=== PATIENT | male | born 1985 | race African-American/Black ===

== ENCOUNTER 2016-12-25 10:29 | Emergency (ER) | payer MEDICARE, MEDICAID ==
--- NOTE | 2016-12-25 10:48 | ER Document Report ---
ED Medical Screen (RME) - General Stated Complaint: RECTAL BLEEDING Time seen by provider: 10:46 Mode of Arrival: Ambulatory Information source: Patient Notes: 31-year-old male presents to ED for rectal bleeding for 2 days states a small amount. He also states he has a white lump on the outside of his rectum that is not sure what it is. States this lump only comes out when he is having a bowel movement. States the pain is getting worse. States the lump has been there for 5 days. I have greeted and performed a rapid initial assessment of this patient. A comprehensive ED assessment and evaluation of the patient, analysis of test results and completion of medical decision making process will be conducted by an additional ED providers. TRAVEL OUTSIDE OF THE [place] IN LAST 30 DAYS: No - Related Data Allergies/Adverse Reactions: No Known Allergies Allergy (Verified 01/31/16 12:30) Past Medical History - Immunizations Immunizations up to date: Yes Hx Diphtheria, Pertussis, Tetanus Vaccination: Yes
--- NOTE | 2016-12-25 11:56 | ER Document Report ---
ED GI Bleed / Rectal Pain - General Chief Complaint: Rectal Pain Stated Complaint: RECTAL BLEEDING Mode of Arrival: Ambulatory Information source: Patient TRAVEL OUTSIDE OF THE [place] IN LAST 30 DAYS: No - HPI Patient complains to provider of: Rectal pain Onset: Last week Timing/Duration: Constant Quality of pain: Burning, Throbbing Severity of symptoms: Moderate Rectal bleeding: Blood mixed w/ stool Rectal foreign body: No Use of: denies: Warfarin, Plavix, ASA, Lovenox, Pradaxa, NSAIDS, ETOH Associated symptoms: None Exacerbated by: Other - BM, VALSALVA Relieved by: Remaining still Similar symptoms previously: No Recently seen / treated by doctor: No - Related Data Allergies/Adverse Reactions: No Known Allergies Allergy (Verified 12/25/16 10:48) Past Medical History - General Information source: Patient - Social History Smoking Status: Unknown if Ever Smoked Chew tobacco use (# tins/day): No Frequency of alcohol use: None Drug Abuse: None Family History: Reviewed & Not Pertinent, DM, Malignancy Patient has suicidal ideation: No Patient has homicidal ideation: No - Past Medical History Cardiac Medical History: Reports: None Pulmonary Medical History: Reports: None EENT Medical History: Reports: None Neurological Medical History: Reports: None Endocrine Medical History: Reports: None Renal/ Medical History: Denies: Hx Peritoneal Dialysis Malignancy Medical History: Reports None GI Medical History: Reports: None Musculoskeltal Medical History: Reports None Psychiatric Medical History: Reports: None Surgical Hx: Negative - Immunizations Immunizations up to date: Yes Hx Diphtheria, Pertussis, Tetanus Vaccination: Yes Review of Systems - Review of Systems Constitutional: No symptoms reported EENT: No symptoms reported Cardiovascular: No symptoms reported Respiratory: No symptoms reported Gastrointestinal: See HPI Genitourinary: No symptoms reported Musculoskeletal: No symptoms reported Skin: No symptoms reported Neurological/Psychological: No symptoms reported Physical Exam - Vital signs Vitals: Temp Pulse Resp BP Pulse Ox 98.1 F 88 18 123/85 100 12/25/16 10:47 12/25/16 10:47 12/25/16 10:47 12/25/16 10:47 12/25/16 10:47 Interpretation: Normal. No: Tachycardic, Tachypneic, Febrile - General General appearance: Appears well, Alert In distress: None - HEENT Head: Normocephalic Eyes: Normal Conjunctiva: Normal Ears: Normal Nasal: Normal Mouth/Lips: Normal Mucous membranes: Normal Pharynx: Normal Neck: Normal - Respiratory Respiratory status: No respiratory distress - Cardiovascular Rhythm: Regular - Abdominal Inspection: Normal Distension: No distension Bowel sounds: Normal - Rectal Tenderness: Yes - 5 O'CLOCK AND 10 O'CLOCK Hemorrhoids: Internal, External Notes: FAMILY MEMBER BRIINGS PHOTO OF APPARENT PROLAPSED INTERNAL HEMORRHOID. - Extremities General upper extremity: Normal inspection General lower extremity: Normal inspection. No: Rick's sign - Neurological Neuro grossly intact: Yes Cognition: Normal Orientation: AAOx4 - Psychological Associated symptoms: Normal affect, Normal mood - Skin Skin Temperature: Warm Skin Moisture: Dry Skin Color: Normal Skin Turgor: Elastic Course - Vital Signs Vital signs: Temp Pulse Resp BP Pulse Ox 98.1 F 88 18 123/85 100 12/25/16 10:47 12/25/16 10:47 12/25/16 10:47 12/25/16 10:47 12/25/16 10:47 Discharge - Discharge Clinical Impression: Hemorrhoid prolapse Condition: Stable Disposition: HOME, SELF-CARE Instructions: Hemorrhoids ([facility]), HC Hemorrhoid Cream ([facility]), Oral Narcotic Medication ([facility]) Additional Instructions: MEDS DIRECTED. TAKE MIRALAX OR OTHER STOOL SOFTENER TO KEEP BOWEL MOVEMENTS SOFT AND EASY TO PASS. FOLLOW UP WITH [facility] IF PROBLEM DOES NOT RESOLVE IN 5-7 DAYS. Prescriptions: Hydrocodone/Acetaminophen [[place] 5-325 mg Tablet] 1 tab PO Q4HP PRN #14 tablet PRN Reason: For Pain Hydrocortisone Acetate [Anusol Hc 25 mg Supp.rect] 1 supp.rect [place] BID #14 supp.rect Referrals: FIDELIA OSUNA MD [Primary Care Provider] - Follow up as needed KEVEN HUFF MD [ACTIVE STAFF] - Follow up as needed
[2016-12-25] MEDS ORDERED: OXYCODONE-ACETAMINOPHEN 5-325 MG TABLET PO ONE (12:06)
[2016-12-25 12:43] VITALS: BP 122/80
== END 2016-12-25 12:43 | disposition home or self-care (01) ==
LOC: ER 10:29
DX: K64.8 Other hemorrhoids (principal); K62.89 Other specified diseases of anus and rectum
CPT/HCPCS: 99283; A9270

== ENCOUNTER 2017-01-20 17:09 | Emergency (ER) | payer MEDICARE, MEDICAID ==
--- NOTE | 2017-01-20 18:41 | ER Document Report ---
ED Medical Screen (RME) - General Stated Complaint: COUGH Notes: 31 yo male c/o cough and sore throat x 1 month. + fever, subjective. TRAVEL OUTSIDE OF THE [place] IN LAST 30 DAYS: No - Related Data Allergies/Adverse Reactions: No Known Allergies Allergy (Verified 12/25/16 10:48) Past Medical History Renal/ Medical History: Denies: Hx Peritoneal Dialysis - Immunizations Immunizations up to date: Yes Hx Diphtheria, Pertussis, Tetanus Vaccination: Yes Physical Exam - Vital signs Vitals: Temp Pulse Resp BP Pulse Ox 98.5 F 85 16 135/83 H 98 01/20/17 17:33 01/20/17 17:33 01/20/17 17:33 01/20/17 17:33 01/20/17 17:33 Course - Vital Signs Vital signs: Temp Pulse Resp BP Pulse Ox 98.5 F 85 16 135/83 H 98 01/20/17 17:33 01/20/17 17:33 01/20/17 17:33 01/20/17 17:33 01/20/17 17:33
--- NOTE | 2017-01-20 21:43 | ER Document Report ---
ED General - General Chief Complaint: Sore Throat Stated Complaint: COUGH Notes: Patient is a 31-year-old male without past medical history who presents with one month of cough and sore throat. Nothing improves or worsens the symptoms. He states he has been trying cough drops. He has not seen his primary care doctor regarding today's concerns. He describes the pain in his throat as an itching, irritating pain. It is seen unchanged since onset. He denies any fever, headache, neck pain or altered mental status. No shortness of breath. No diarrhea or vomiting. TRAVEL OUTSIDE OF THE [place] IN LAST 30 DAYS: No - Related Data Allergies/Adverse Reactions: tramadol Allergy (Verified 01/20/17 20:33) Past Medical History - General Information source: Patient - Social History Smoking Status: Never Smoker Chew tobacco use (# tins/day): No Frequency of alcohol use: None Drug Abuse: None Lives with: Spouse/Significant other Family History: Reviewed & Not Pertinent, DM, Malignancy Patient has suicidal ideation: No Patient has homicidal ideation: No Renal/ Medical History: Denies: Hx Peritoneal Dialysis - Immunizations Immunizations up to date: Yes Hx Diphtheria, Pertussis, Tetanus Vaccination: Yes Review of Systems - Review of Systems Notes: Constitutional: Negative for fever. HENT: Positive for sore throat. Eyes: Negative for visual changes. Cardiovascular: Negative for chest pain. Respiratory: Negative for shortness of breath. Positive for cough Gastrointestinal: Negative for abdominal pain, vomiting or diarrhea. Genitourinary: Negative for dysuria. Musculoskeletal: Negative for back pain. Skin: Negative for rash. Neurological: Negative for headaches, weakness or numbness. 10 point ROS negative except as marked above and in HPI. Physical Exam - Vital signs Vitals: Temp Pulse Resp BP Pulse Ox 98.5 F 85 16 135/83 H 98 01/20/17 17:33 01/20/17 17:33 01/20/17 17:33 01/20/17 17:33 01/20/17 17:33 Interpretation: Normal Notes: PHYSICAL EXAMINATION: GENERAL: Well-appearing, well-nourished and in no acute distress. HEAD: Atraumatic, normocephalic. EYES: Pupils equal round and reactive to light, extraocular movements intact, sclera anicteric, conjunctiva are normal. ENT: nares patent, oropharynx clear without exudates. Moist mucous membranes. NECK: Normal range of motion, supple without lymphadenopathy LUNGS: Breath sounds clear to auscultation bilaterally and equal. No wheezes rales or rhonchi. HEART: Regular rate and rhythm without murmurs ABDOMEN: Soft, nontender, normoactive bowel sounds. No guarding, no rebound. No masses appreciated. EXTREMITIES: Normal range of motion, no pitting or edema. No cyanosis. NEUROLOGICAL: No focal neurological deficits. Moves all extremities spontaneously and on command. PSYCH: Normal mood, normal affect. SKIN: Warm, Dry, normal turgor, no rashes or lesions noted. Course - Re-evaluation Re-evalutation: 01/20/17 21:42 Presentation is most consistent with a viral upper respiratory infection. Patient is overall well appearance, vitals within normal limits, well-hydrated. Patient denies any headache, neck pain, and has no evidence of meningismus on examination. Lungs are clear bilaterally. No evidence of respiratory distress. Based on clinical exam and history, I do not suspect an acute pneumonia, meningitis, strep pharyngitis, or an acute encephalitis. Chest x- ray obtained in triage is unremarkable. At this time will discharge with return precautions and follow-up recommendations. Verbal discharge instructions given a the bedside and opportunity for questions given. Medication warnings reviewed. Patient is in agreement with this plan and has verbalized understanding of return precautions and the need for primary care follow-up in the next 24-72 hours. - Vital Signs Vital signs: Temp Pulse Resp BP Pulse Ox 97.6 F 77 18 118/88 H 95 01/20/17 22:13 01/20/17 22:13 01/20/17 22:13 01/20/17 22:13 01/20/17 22:13 - Diagnostic Test Radiology reviewed: Image reviewed, Reports reviewed Radiology results interpreted by me: 01/21/17 02:58 Chest x-ray: No acute infiltrate Discharge - Discharge Clinical Impression: Bronchitis Condition: Good Disposition: HOME, SELF-CARE Additional Instructions: You were seen for symptoms most consistent with bronchitis. This can take up to 12 weeks to fully resolve. This is generally due to a viral infection. Please follow-up with your primary doctor in the next 2-3 days. Return if you develop worsening cough, vomiting, fever >100.4, pass out, begin coughing blood, or have any other symptoms that are concerning to you. Please use the medications prescribed today as directed. Prescriptions: Benzonatate [Tessalon Perle 100 mg Capsule] 100 mg PO Q8HP PRN #40 cap PRN Reason: Referrals: FIDELIA OSUNA MD [Primary Care Provider] - Follow up as needed
[2017-01-20] MEDS ORDERED: DIPHENHYDRAMINE HCL 25 MG CAPSULE PO ONE (22:04)
[2017-01-20 22:14] VITALS: BP 118/88
== END 2017-01-20 22:13 | disposition home or self-care (01) ==
LOC: ER 17:09
DX: J40 Bronchitis, not specified as acute or chronic (principal); J02.9 Acute pharyngitis, unspecified; R05 Cough
CPT/HCPCS: 99283; 87070; 87880; 71020; A9270

== ENCOUNTER 2018-06-05 19:12 | Emergency (ER) | payer MEDICARE, MEDICAID ==
[2018-06-05 19:29] VITALS: BP 137/91
[2018-06-05] MEDS ORDERED: IBUPROFEN 600 MG TABLET PO ONE (20:09)
[2018-06-05] MEDS ORDERED: SULFAMETHOXAZOLE/TRIMETHOPRIM 800-160 MG TABLET PO ONE (20:10)
--- NOTE | 2018-06-05 20:11 | ER Document Report ---
ED General - General Chief Complaint: Abscess Stated Complaint: LUMP ON HEAD Time Seen by Provider: 06/05/18 19:46 Notes: Patient is a 32-year-old male without chronic medical problems who presents with 1 week of progressively worsening swelling and pain to his right forehead. He notes that it is a dull throbbing, constant pain. Worsened by touching the area. Nothing improves the pain. He states that he has tried to pop it on his own unsuccessfully. He has not seen his general doctor regarding today's concerns. He denies a history of similar symptoms in the past. No fever or constitutional symptoms. TRAVEL OUTSIDE OF THE [place] IN LAST 30 DAYS: No - Related Data Allergies/Adverse Reactions: tramadol Allergy (Verified 06/05/18 19:57) Past Medical History - General Information source: Patient - Social History Smoking Status: Never Smoker Chew tobacco use (# tins/day): No Frequency of alcohol use: None Drug Abuse: None Lives with: Spouse/Significant other Family History: Reviewed & Not Pertinent, DM, Malignancy Patient has suicidal ideation: No Patient has homicidal ideation: No Renal/ Medical History: Denies: Hx Peritoneal Dialysis Past Surgical History: Reports: Hx Abdominal Surgery - hernia repair as a child - Immunizations Immunizations up to date: Yes Hx Diphtheria, Pertussis, Tetanus Vaccination: Yes Review of Systems - Review of Systems Notes: Constitutional: Negative for fever. HENT: Negative for sore throat. Eyes: Negative for visual changes. Cardiovascular: Negative for chest pain. Respiratory: Negative for shortness of breath. Gastrointestinal: Negative for abdominal pain, vomiting or diarrhea. Genitourinary: Negative for dysuria. Musculoskeletal: Negative for back pain. Skin: Positive for abscess of the right forehead Neurological: Negative for headaches, weakness or numbness. 10 point ROS negative except as marked above and in HPI. Physical Exam - Vital signs Vitals: Temp Pulse Resp BP Pulse Ox 98.7 F 82 18 137/91 H 99 06/05/18 19:28 06/05/18 19:28 06/05/18 19:28 06/05/18 19:28 06/05/18 19:28 Interpretation: Normal Notes: PHYSICAL EXAMINATION: GENERAL: Appears moderately uncomfortable but no acute distress HEAD: Atraumatic, normocephalic. EYES: Pupils equal round and reactive to light, extraocular movements intact, sclera anicteric, conjunctiva are normal. ENT: nares patent, oropharynx clear without exudates. Moist mucous membranes. NECK: Normal range of motion, supple without lymphadenopathy LUNGS: Breath sounds clear to auscultation bilaterally and equal. No wheezes rales or rhonchi. HEART: Regular rate and rhythm without murmurs ABDOMEN: Soft, nontender, normoactive bowel sounds. No guarding, no rebound. No masses appreciated. EXTREMITIES: Normal range of motion, no pitting or edema. No cyanosis. NEUROLOGICAL: No focal neurological deficits. Moves all extremities spontaneously and on command. PSYCH: Normal mood, normal affect. SKIN: Warm, Dry, normal turgor, 0.25 x 0.25 cm abscess to the right forehead Course - Re-evaluation Re-evalutation: 06/06/18 03:58 Patient presents with an abscess to the right forehead. No surrounding erythema or induration. The site was anesthetized with lidocaine and a small incision was made. 3 cc of purulent drainage was obtained, the area was probed for loculations and then subsequently irrigated. Patient tolerated procedure well. He will be started on trimethoprim sulfamethoxazole. At this time will discharge with return precautions and follow-up recommendations. Verbal discharge instructions given a the bedside and opportunity for questions given. Medication warnings reviewed. Patient is in agreement with this plan and has verbalized understanding of return precautions and the need for primary care follow-up in the next 24-72 hours. - Vital Signs Vital signs: Temp Pulse Resp BP Pulse Ox 98.7 F 82 18 137/91 H 99 06/05/18 19:28 06/05/18 19:28 06/05/18 19:28 06/05/18 19:28 06/05/18 19:28 Procedures - Incision and Drainage Head Type: Simple Anesthetic type: 1% Lidocaine mL's of anesthetic: 3 Blade size: 11 I&D procedure: Betadine prep applied Incision Method: Incision made by scalpel Amount/type of drainage: 3 cc of purulent drainage Discharge - Discharge Clinical Impression: Abscess of forehead Condition: Good Disposition: HOME, SELF-CARE Additional Instructions: You were seen for an abscess that required drainage. Please clean this area with soap and water twice daily and apply a topical antibiotic. Dress the area after each cleaning. Please return if you develop fever, vomiting, the pain at the site worsens, you notice spreading redness from the area, or you have any other symptoms that are concerning to you. For your pain: Take ibuprofen 600 mg and acetaminophen 1000 mg every 6 hours together as needed for pain. Apply a warm compress to the area 20 minutes every 2 hours. You can also apply ice to the area to reduce the swelling and pain. Take antibiotics as directed until completed. Prescriptions: Sulfamethoxazole/Trimethoprim [Bactrim Ds Tablet] 2 tab PO BID #28 tablet Referrals: FIDELIA OSUNA MD [NO LOCAL MD] - Follow up as needed
== END 2018-06-05 20:23 | disposition home or self-care (01) ==
LOC: ER 19:12
PROC: 0H91XZZ Drainage of Face Skin, External Approach (ICD-10-PCS; principal; 2018-06-05)
DX: L02.01 Cutaneous abscess of face (principal)
CPT/HCPCS: 99283; 10060; A9270 ×2

== ENCOUNTER 2018-12-12 09:57 | Emergency (ER) | payer MEDICARE, MEDICAID ==
[2018-12-12] MEDS ORDERED: HYDROCODONE/ACETAMINOPHEN 5-325 MG TABLET PO ONE (10:39)
--- NOTE | 2018-12-12 11:17 | RADIOLOGY REPORT (SQ) ---
EXAM DESCRIPTION: ANKLE RIGHT COMPLETE; FOOT RIGHT COMPLETE COMPLETED DATE/TIME: 12/12/2018 11:08 am; 12/12/2018 11:09 am REASON FOR STUDY: surgery in dec, fell on surgical site COMPARISON: None. NUMBER OF VIEWS: Six views. TECHNIQUE: AP, lateral, and oblique radiographic images acquired of the right foot and right ankle. LIMITATIONS: None. FINDINGS: MINERALIZATION: Osteopenia. BONES: No acute fracture or dislocation. No worrisome bone lesions. JOINTS: Intact. SOFT TISSUES: Diffuse swelling. No foreign body. OTHER: No other significant finding. IMPRESSION: NO RADIOGRAPHIC EVIDENCE OF ACUTE INJURY. TECHNICAL DOCUMENTATION: JOB ID: [id number] [employer]- All Rights Reserved Reading location - IP/workstation name: [email or web address]
--- NOTE | 2018-12-12 11:17 | RADIOLOGY REPORT (SQ) ---
EXAM DESCRIPTION: ANKLE RIGHT COMPLETE; FOOT RIGHT COMPLETE COMPLETED DATE/TIME: 12/12/2018 11:08 am; 12/12/2018 11:09 am REASON FOR STUDY: surgery in dec, fell on surgical site COMPARISON: None. NUMBER OF VIEWS: Six views. TECHNIQUE: AP, lateral, and oblique radiographic images acquired of the right foot and right ankle. LIMITATIONS: None. FINDINGS: MINERALIZATION: Osteopenia. BONES: No acute fracture or dislocation. No worrisome bone lesions. JOINTS: Intact. SOFT TISSUES: Diffuse swelling. No foreign body. OTHER: No other significant finding. IMPRESSION: NO RADIOGRAPHIC EVIDENCE OF ACUTE INJURY. TECHNICAL DOCUMENTATION: JOB ID: [id number] [employer]- All Rights Reserved Reading location - IP/workstation name: [email or web address]
[2018-12-12] MEDS ORDERED: HYDROCODONE/ACETAMINOPHEN 5-325 MG (6 TAB/ER DISP) PO PRN (11:24)
--- NOTE | 2018-12-12 11:24 | ER Document Report ---
HPI - HPI Time Seen by Provider: 12/12/18 10:39 Pain Level: 5 Notes: Patient is an otherwise healthy 33-year-old male who presents with chief complaint of right foot and ankle pain. He states that he had surgery on this area approximately 1 month ago. Patient reports last night he tripped and fell partially landing on his right foot he reports increased pain since then. Mild swelling without ecchymosis. - DERM Skin Color: Normal Past Medical History - General Information source: Patient - Social History Smoking Status: Never Smoker Chew tobacco use (# tins/day): No Drug Abuse: None Family History: Reviewed & Not Pertinent, DM, Malignancy Patient has suicidal ideation: No Patient has homicidal ideation: No - Medical History Medical History: Negative Renal/ Medical History: Denies: Hx Peritoneal Dialysis Past Surgical History: Reports: Hx Abdominal Surgery - hernia repair as a child - Immunizations Immunizations up to date: Yes Hx Diphtheria, Pertussis, Tetanus Vaccination: Yes Vertical Provider Document - CONSTITUTIONAL Notes: PHYSICAL EXAMINATION: GENERAL: Well-appearing, well-nourished and in no acute distress. HEAD: Atraumatic, normocephalic. EYES: Pupils equal round extraocular movements intact, conjunctiva are normal. ENT: Nares patent NECK: Normal range of motion LUNGS: No respiratory distress Musculoskeletal: Normal range of motion, mild swelling noted to right medial ankle. Normal motor and sensation, cap refill less than 3 seconds. NEUROLOGICAL: Normal speech, normal gait. PSYCH: Normal mood, normal affect. SKIN: Warm, Dry, normal turgor, no rashes or lesions noted. - INFECTION CONTROL TRAVEL OUTSIDE OF THE [place] IN LAST 30 DAYS: No Course - Re-evaluation Re-evalutation: X-ray of the right foot and right ankle are both negative for any acute fracture. Encourage patient to continue using his crutches as per lynnette mmendation of his orthopedic provider. I did send patient home with a dispense pack of [place] as there is swelling noted to the area patient does appear to be in moderate pain. - Vital Signs Vital signs: Temp Pulse Resp BP Pulse Ox 98.0 F 72 16 135/88 H 99 12/12/18 10:11 12/12/18 10:11 12/12/18 10:11 12/12/18 10:11 12/12/18 10:11 Discharge - Discharge Clinical Impression: Foot pain, right Condition: Stable Disposition: HOME, SELF-CARE Additional Instructions: Fortunately the x-rays were normal and you did not refracture any of the bones in your foot or ankle. Ice and elevate the foot just like you did when you first injured it. Continue to use your crutches. Take ibuprofen 600 mg every 6 hours. Use the hydrocodone pain medication I sent you home with for severe pain only.
[2018-12-12 11:42] VITALS: BP 141/87
== END 2018-12-12 11:40 | disposition home or self-care (01) ==
LOC: ER 09:57
DX: M79.671 Pain in right foot (principal); M25.571 Pain in right ankle and joints of right foot; M25.471 Effusion, right ankle; W10.9XXA Fall (on) (from) unspecified stairs and steps, initial encounter; Z98.890 Other specified postprocedural states
CPT/HCPCS: 99283; 73610; 73630; A9270 ×2

== ENCOUNTER 2019-04-30 14:19 | Emergency (ER) | payer MEDICARE, MEDICAID ==
--- NOTE | 2019-04-30 14:44 | ER Document Report ---
ED Medical Screen (RME) - General Chief Complaint: Insect Bite Stated Complaint: ABSCESS Time Seen by Provider: 04/30/19 14:33 Mode of Arrival: Ambulatory Information source: Patient Notes: Patient presents emergency department with complaints of possible insect bite to his right earlobe. He reports 3 days ago he woke up in his right earlobe was swollen. He squeezed it and it started draining some clear drainage at first changing to thick brown pus drainage later. Now reports tenderness and pain to the right earlobe, side of his face. denies fever vomiting diarrhea denies history of MRSA. I have greeted and performed a rapid initial assessment of this patient. A comprehensive ED assessment and evaluation of the patient, analysis of test results and completion of the medical decision making process will be conducted by additional ED providers. \Dictation of this chart was performed using voice recognition software; therefore, there may be some unintended grammatical errors TRAVEL OUTSIDE OF THE [place] IN LAST 30 DAYS: No - Related Data Allergies/Adverse Reactions: tramadol Allergy (Verified 12/12/18 10:04) Past Medical History Renal/ Medical History: Denies: Hx Peritoneal Dialysis Past Surgical History: Reports: Hx Abdominal Surgery - hernia repair as a child - Immunizations Immunizations up to date: Yes Hx Diphtheria, Pertussis, Tetanus Vaccination: Yes Physical Exam - Vital signs Vitals: Temp Pulse Resp BP Pulse Ox 98.2 F 79 18 142/91 H 98 04/30/19 14:24 04/30/19 14:24 04/30/19 14:24 04/30/19 14:24 04/30/19 14:24 Course - Vital Signs Vital signs: Temp Pulse Resp BP Pulse Ox 98.2 F 79 18 142/91 H 98 04/30/19 14:24 04/30/19 14:24 04/30/19 14:24 04/30/19 14:24 04/30/19 14:24
--- NOTE | 2019-04-30 15:22 | ER Document Report ---
ED Skin Rash/Insect Bite/Abscs - General Chief Complaint: Insect Bite Stated Complaint: ABSCESS Time Seen by Provider: 04/30/19 14:33 Primary Care Provider: MICHAEL BATES DO [ASSOCIATE] - Follow up in 3-5 days Mode of Arrival: Ambulatory Notes: Patient is a 33-year-old male who presents the emergency department with a chief complaint of right earlobe swelling. He states that he noticed swelling to the right earlobe 3 days ago and he was able to squeeze it and thick brown purulent drainage had drained from the area. He states that it got worse and he noticed some more swelling to his right jaw area. The area is very tender. He denies any fever, body aches, chills, or any other symptoms. TRAVEL OUTSIDE OF THE [place] IN LAST 30 DAYS: No - Related Data Allergies/Adverse Reactions: tramadol Allergy (Verified 12/12/18 10:04) Past Medical History - General Information source: Patient - Social History Smoking Status: Never Smoker Family History: Reviewed & Not Pertinent, DM, Malignancy Renal/ Medical History: Denies: Hx Peritoneal Dialysis Past Surgical History: Reports: Hx Abdominal Surgery - hernia repair as a child - Immunizations Immunizations up to date: Yes Hx Diphtheria, Pertussis, Tetanus Vaccination: Yes Review of Systems - Review of Systems Notes: REVIEW OF SYSTEMS: CONSTITUTIONAL : Denies recent illness. Denies recent unintentional weight loss. Denies fever, chills, or sweats. EENT: Denies eye, ear, throat, or mouth pain, discharge, or symptoms. Denies nasal or sinus congestion. CARDIOVASCULAR: Denies chest pain. RESPIRATORY: Denies shortness of breath, cough, congestion, difficulty breathing, or wheezing. GASTROINTESTINAL: Denies nausea, vomiting, and diarrhea. Denies abdominal pain. Denies constipation. GENITOURINARY: Denies difficulty urinating, burning, blood in urine, urgency or frequency. MUSCULOSKELETAL: Denies neck and back pain. Denies joint pain or swelling. SKIN: See HPI HEMATOLOGIC : Denies easy bruising or bleeding. LYMPHATIC: Denies swollen, painful, enlarged glands. NEUROLOGICAL: Denies no numbness or tingling denies weakness. Denies headache. Denies altered mental status. Denies alteration in speech. PSYCHIATRIC: Denies stress, anxiety, alteration in sleep patterns, or depression. All other systems reviewed and negative. Physical Exam - Vital signs Vitals: Temp Pulse Resp BP Pulse Ox 98.2 F 79 18 142/91 H 98 04/30/19 14:24 04/30/19 14:24 04/30/19 14:24 04/30/19 14:24 04/30/19 14:24 - Notes Notes: PHYSICAL EXAMINATION: GENERAL: Appears well, healthy, well-nourished, no acute distress. HEAD: Normocephalic, atraumatic. EYES: PERRL, conjunctiva normal, all extraocular movements intact, sclera nonicteric ENT: Moist mucous membranes. Tenderness noted to right earlobe and right jaw at the mandibular joint. NECK: Supple, no noticeable swelling, redness, rash. Normal range of motion. LUNGS: Equal breath sounds bilaterally and clear to auscultation. No wheezes rales or rhonchi. CARDIOVASCULAR: S1-S2, regular rate, regular rhythm. Radial pulses 2+, normal. ABDOMEN: Normoactive bowel sounds. Soft, nontender, no guarding, no rebound tenderness, and no masses palpated. EXTREMITIES: Normal strength and range of motion, no pitting or edema. No cyanosis. NEUROLOGICAL: Moves all extremities upon command. Strength 5/5 in all extremities. PSYCH: Normal mood, normal affect. SKIN: Warm, dry. No rash, lesions, ulcerations noted. Normal skin turgor. Course - Re-evaluation Re-evalutation: 04/30/19 18:44 Patient does have a 1.4 x 1.3 hypodense area, that may represent an abscess formation. I spoke with Dr. Spicer, the ENT doctor on-call. He recommends the patient have a dose of Decadron and Unasyn here in the emergency department. He is also recommending the patient be sent home with Augmentin XR 1000 mg 2 tabs twice daily x10 days. He also would like him to be on Decadron for the next 2 more days. I spoke with the patient in regards to the labs, CT findings, and my conversation with Dr. Spicer. The patient states that he will follow-up with him and take all his medications. - Vital Signs Vital signs: Temp Pulse Resp BP Pulse Ox 98.9 F 75 16 125/71 98 04/30/19 19:31 04/30/19 19:31 04/30/19 19:31 04/30/19 19:31 04/30/19 19:31 - Laboratory Result Diagrams: 04/30/19 16:30 04/30/19 16:30 Laboratory results interpreted by me: 04/30/19 16:30 Glucose 133 H Discharge - Discharge Clinical Impression: Abscess Condition: Stable Disposition: HOME, SELF-CARE Additional Instructions: You are seen today in the emergency department for swelling of the right side of your jaw. You have an abscess in that area. Please follow-up with the ENT in regards to this visit and orthopedics you are being started on antibiotics. Please make sure you take all antibiotics as prescribed. Even if you start to feel better, please finish all your medication. You are also being sent home on oral steroids. Please take as directed. They will contact you. If you do not hear from them by Wednesday, please give them a call. You can take Tylenol 1000 mg and ibuprofen 600 mg every 6 hours for your pain. Prescriptions: Amoxicillin/Potassium Clav [Augmentin Xr 1,000-62.5 Tab] 2 each PO BID 10 Days #40 tab.er.12h Dexamethasone [Decadron 4 Mg Tablet] 8 mg PO DAILY #4 tablet Forms: Return to Work Referrals: MICHAEL BATES DO [ASSOCIATE] - Follow up in 3-5 days
[2019-04-30] MEDS ORDERED: IBUPROFEN 600 MG TABLET PO ONE (15:26)
[2019-04-30] MEDS ORDERED: ACETAMINOPHEN 325 MG TABLET PO ONE (15:26)
[2019-04-30 16:53] LABS: ABSOLUTE EOSINOPHILS # (AUTO) 0.2 10^3/uL (0.0-0.6); ABSOLUTE LYMPHOCYTES (AUTO) 2.2 10^3/uL (0.5-4.7); ABSOLUTE MONOCYTES (AUTO) 0.4 10^3/uL (0.1-1.4); ABSOLUTE NEUT (AUTO) 2.8 10^3/uL (1.7-8.2); BASOPHILS % (AUTO) 0.9 % (0-2); HEMATOCRIT 43.2 % (37.9-51.0); HEMOGLOBIN 14.8 g/dL (13.5-17.0); LYMPHOCYTES % (AUTO) 39.3 % (13-45); MEAN CORPUSCULAR HEMOGLOBIN 32.5 pg (27.0-33.4); MEAN CORPUSCULAR HGB CONC 34.3 g/dL (32.0-36.0); MEAN CORPUSCULAR VOLUME 95 fl (80-97); MONOCYTES % (AUTO) 7.5 % (3-13); PLATELET COUNT 278 10^3/uL (150-450); RED BLOOD COUNT 4.56 10^6/uL (4.35-5.55); RED CELL DISTRIBUTION WIDTH 12.8 % (11.5-14.0); SEGMENTED NEUTROPHILS % (AUTO) 49.3 % (42-78); TOTAL CELLS COUNTED % (AUTO) 100 %; WHITE BLOOD COUNT 5.7 10^3/uL (4.0-10.5)
[2019-04-30 17:13] LABS: ALANINE AMINOTRANSFERASE 28 U/L (21-72); ALBUMIN 4.3 g/dL (3.5-5.0); ALKALINE PHOSPHATASE 97 U/L (38-126); ANION GAP 11 (5-19); ASPARTATE AMINO TRANSFERASE 37 U/L (17-59); BILIRUBIN,DIRECT 0.3 mg/dL (0.0-0.4); BILIRUBIN,TOTAL 0.6 mg/dL (0.2-1.3); BLOOD UREA NITROGEN 14 mg/dL (7-20); CALCIUM 9.6 mg/dL (8.4-10.2); CARBON DIOXIDE 27 mmol/L (22-30); CHLORIDE 104 mmol/L (98-107); GLUCOSE 133 mg/dL (75-110); POTASSIUM 4.2 mmol/L (3.6-5.0); SODIUM 142.3 mmol/L (137-145); TOTAL PROTEIN 7.7 g/dL (6.3-8.2)
--- NOTE | 2019-04-30 17:55 | RADIOLOGY REPORT (SQ) ---
EXAM DESCRIPTION: CT FACIAL AREA WITH COMPLETED DATE/TIME: 04/30/2019 5:01 pm REASON FOR STUDY: abscess right earlobe to right side of face COMPARISON: None. TECHNIQUE: Post contrast images through the facial bones and orbits windowed for bone and soft tissu e. Additional coronal and sagittal reconstructed images reviewed. All images stored on PACS. All CT scanners at this facility use dose modulation, iterative reconstruction, and/or weight based d osing when appropriate to reduce radiation dose to as low as reasonably achievable (ALARA). [facility]: Dose Right [facility]: CareDose [facility]: Dose Right [facility]: Teradose 4D [facility]: Candescent Healing CONTRAST TYPE AND DOSE: contrast/concentration: Isovue 350.00 mg/ml; Total Contrast Delivered: 50.0 ml; Total Saline Delivered: 50.0 ml RENAL FUNCTION: None required. The patient is less than 50 years old. RADIATION DOSE: CT Rad equipment meets quality standard of care and radiation dose reduction techniq ues were employed. CTDIvol: 30.4 mGy. DLP: 591 mGy-cm. . LIMITATIONS: None. FINDINGS: FACIAL BONES: No acute fracture. ORBITS: Intact. Symmetric intact globes and retroorbital soft tissues. PARANASAL SINUSES: No air-fluid levels or significant mucosal thickening. Maxillary sinus outlets are patent. SOFT TISSUES: The right parotid gland is mildly enlarged and demonstrates heterogeneous enhancement. There is a 1.4 x 1.3 cm hypodense area at the anterior aspect of the right parotid gland. INFERIOR BRAIN: Limited view. No acute findings. IMPRESSION: Mildly enlarged and heterogeneous right parotid gland, may be secondary to acute parotit is. 1.4 x 1.3 cm hypodense area at the anterior aspect of the right parotid gland, may represent abs cess formation. Followup CT after treatment recommended to ensure complete resolution and exclude un derlying mass. TECHNICAL DOCUMENTATION: JOB ID: [id number] [place]- Quality ID # 436: Final reports with documentation of one or more dose reduction techniques (e.g., Au tomated exposure control, adjustment of the mA and/or kV according to patient size, use of iterative reconstruction technique) 2010 [employer]- All Rights Reserved Reading location - IP/workstation name: [email or web address]
[2019-04-30] MEDS ORDERED: AMPICILLIN SOD/SULBACTAM 3 GM VIAL IV ONE (18:32)
[2019-04-30] MEDS ORDERED: DEXAMETHASONE SOD PHOS INJ 10 MG/1 ML VIAL IV ONE (18:33)
[2019-04-30 19:32] VITALS: BP 125/71
[2019-04-30] MEDS ORDERED: CLINDAMYCIN 300 MG/D5W RTU 300 MG/50 ML RTUPB IV SCH (22:00)
== END 2019-04-30 20:18 | disposition home or self-care (01) ==
LOC: ER 14:19
DX: L02.91 Cutaneous abscess, unspecified (principal); Z88.5 Allergy status to narcotic agent
CPT/HCPCS: 99283; 96374; 36415; 87040; 85025; 80053; 70487; 96375; A9270 ×2; J0295; J1100

== ENCOUNTER 2019-05-06 09:43 | Emergency (ER) | payer MEDICARE, MEDICAID ==
[2019-05-06] MEDS ORDERED: IBUPROFEN 800 MG TABLET PO ONE (10:13)
--- NOTE | 2019-05-06 10:14 | ER Document Report ---
ED Medical Screen (RME) - General Chief Complaint: Leg Pain Stated Complaint: LEG PAIN Time Seen by Provider: 05/06/19 10:10 Notes: Patient is a 33-year-old male presents to the emergency department for bilateral calf pain. States pain started this morning when he woke up. Patient is denying any injury or trauma. Patient states that hurts bilateral calfs when he tries to walk. Patient states his left lower extremity he feels as though his "veins are popping out." States they are more prominent than they typically are. GENERAL: Alert, interacts well. No acute distress. EXTREMITIES: Moves all 4 extremities spontaneously. No edema, normal radial and dorsalis pedis pulses bilaterally. No cyanosis. Pain upon palpation bilateral calfs I have greeted and performed a rapid initial assessment of this patient. A comprehensive ED assessment and evaluation of the patient, analysis of test results and completion of the medical decision making process will be conducted by additional ED providers. This medical record was dictated with voice recognizing software. There may be grammatical, syntax errors that are unintended. TRAVEL OUTSIDE OF THE [place] IN LAST 30 DAYS: No - Related Data Allergies/Adverse Reactions: tramadol Allergy (Verified 05/06/19 09:43) Past Medical History Renal/ Medical History: Denies: Hx Peritoneal Dialysis Past Surgical History: Reports: Hx Abdominal Surgery - hernia repair as a child - Immunizations Immunizations up to date: Yes Hx Diphtheria, Pertussis, Tetanus Vaccination: Yes Physical Exam - Vital signs Vitals: Temp Pulse Resp BP Pulse Ox 97.9 F 95 18 140/97 H 100 05/06/19 09:50 05/06/19 09:50 05/06/19 09:50 05/06/19 09:50 05/06/19 09:50 Course - Vital Signs Vital signs: Temp Pulse Resp BP Pulse Ox 97.9 F 95 18 140/97 H 100 05/06/19 09:50 05/06/19 09:50 05/06/19 09:50 05/06/19 09:50 05/06/19 09:50
[2019-05-06] MEDS ORDERED: IBUPROFEN 800 MG TABLET ONE (10:17)
[2019-05-06] MEDS ORDERED: ACETAMINOPHEN 325 MG TABLET PO ONE (11:39)
--- NOTE | 2019-05-06 11:46 | ER Document Report ---
ED General - General Chief Complaint: Leg Pain Stated Complaint: LEG PAIN Time Seen by Provider: 05/06/19 10:10 Primary Care Provider: [facility] [Provider Group] - Follow up as needed TRAVEL OUTSIDE OF THE [place] IN LAST 30 DAYS: No - HPI Notes: Patient is a 33-year-old male that presents to the emergency department for chief complaint of bilateral calf pain. Patient states he woke up this morning with a crampy sharp pain in his bilateral calfs. He denies any radiation of the pain. He states that he has 1 prominent vein on his left leg but seems to be more distended than usual. His pain is worse with movement or ambulation. He has not taken any medication for pain. Patient denies injury or trauma. He denies recent exertion or long walks/runs. He states that the pain is not too severe when he is at rest with them elevated. He denies history of DVT/PE. He did have a right Achilles tendon repair done 1 month ago. He denies any swelling in his lower extremities. He is not having any dyspnea or chest pain. Past Medical History: Reviewed in chart Past Surgical History: Reviewed in chart Social History: Reviewed in chart Family History: Reviewed and noncontributory for presenting illness Allergies: Reviewed, see documented allergy list. REVIEW OF SYSTEMS: CONSTITUTIONAL : No fever No chills No diaphoresis No recent illness EENT: No vision changes No congestion No sore throat CARDIOVASCULAR: No chest pain No palpitations RESPIRATORY: No shortness of breath No cough No difficulty breathing GASTROINTESTINAL: No abdominal pain No nausea No vomiting No diarrhea GENITOURINARY: No dysuria No hematuria No difficulty urinating MUSCULOSKELETAL: No back pain leg pain No arm pain SKIN: No rashes No lesions LYMPHATIC: No swollen, enlarged glands. NEUROLOGICAL: No lightheadedness No headache No weakness No paresthesias PSYCHIATRIC: No anxiety No depression PHYSICAL EXAMINATION: Vital signs reviewed, nursing noted reviewed. GENERAL: Well-appearing, well-nourished and in no acute distress. HEAD: Atraumatic, normocephalic. EYES: Eyes appear normal, extraocular movements intact, sclera anicteric, conjunctiva are normal. ENT: nares patent, oropharynx clear without exudates. Moist mucous membranes. NECK: Normal range of motion, supple without lymphadenopathy LUNGS: Breath sounds clear to auscultation bilaterally and equal. No wheezes rales or rhonchi. HEART: Regular rate and rhythm without murmurs, +2/4 bilateral DP and PT pulses. Less than 2-second capillary refill. ABDOMEN: Soft, nontender, normoactive bowel sounds. No rebound, guarding, or rigidity. No masses appreciated. EXTREMITIES: Bilateral calf tenderness, left calf varicose vein that is small and not protruding, distal extremities warm, good range of motion, no pitting or edema. Well-healed surgical incision over left Achilles tendon. Normal strength in bilateral Achilles tendons NEUROLOGICAL: No focal neurological deficits. Moves all extremities spontaneously Motor and sensory grossly intact on exam. PSYCH: Normal mood, normal affect. SKIN: Warm, Dry, normal turgor, 1 nylon stitch in well-healed back scar, dissolvable stitch partially embedded in the cheek - Related Data Allergies/Adverse Reactions: tramadol Allergy (Verified 05/06/19 09:43) Past Medical History - Social History Smoking Status: Never Smoker Frequency of alcohol use: None Drug Abuse: None Family History: Reviewed & Not Pertinent, DM, Malignancy Patient has suicidal ideation: No Patient has homicidal ideation: No Renal/ Medical History: Denies: Hx Peritoneal Dialysis Past Surgical History: Reports: Hx Abdominal Surgery - hernia repair as a child - Immunizations Immunizations up to date: Yes Hx Diphtheria, Pertussis, Tetanus Vaccination: Yes Physical Exam - Vital signs Vitals: Temp Pulse Resp BP Pulse Ox 97.9 F 95 18 140/97 H 100 05/06/19 09:50 05/06/19 09:50 05/06/19 09:50 05/06/19 09:50 05/06/19 09:50 Course - Re-evaluation Re-evalutation: 05/06/19 11:46 Vitals reviewed. Nursing notes reviewed. Patient is well-appearing with no focal neurologic deficits. He has tenderness in his calf bilaterally which did improve after receiving Motrin in triage. Patient is requesting more pain med icine and will be given a dose of Tylenol. He has normal peripheral pulses and no distal cyanosis. Arterial flow is intact. He has had recent surgery on his right Achilles tendon and ultrasound will be obtained to evaluate for underlying DVT. His Achilles tendon surgery appears to be well-healing and he has normal strength in the right Achilles tendon. Patient states about a month ago he was caught on his back with a razor blade and stitches were put in. There is one stitch that he believes was forgotten to be removed and is still present. That stitch was removed in the emergency room today. There is no wound dehiscence and is otherwise healing well. 05/06/19 13:02 Patient's ultrasound is negative for acute DVT. He will be discharged home in stable condition. - Vital Signs Vital signs: Temp Pulse Resp BP Pulse Ox 97.9 F 95 18 140/97 H 100 05/06/19 09:50 05/06/19 09:50 05/06/19 09:50 05/06/19 09:50 05/06/19 09:50 Discharge - Discharge Clinical Impression: Bilateral calf pain Condition: Stable Disposition: HOME, SELF-CARE Instructions: Leg Cramps ([facility]) Additional Instructions: Please return to the emergency department if you have any worsening, or concern of your symptoms. Please return to the emergency department if you develop chest pain, difficulty breathing, severe abdominal pain, or ongoing vomiting. Please follow-up with your primary care physician in 2-3 days and any other recommended physicians. If prescribed, take all medications as directed. If you have any questions or concerns do not hesitate to return the emergency department for evaluation. Stay well-hydrated by drinking lots of water, this can help with leg cramps Take Tylenol and ibuprofen at home as needed for pain Referrals: [facility] [Provider Group] - Follow up as needed
[2019-05-06 13:17] VITALS: BP 138/96
--- NOTE | 2019-05-07 14:28 | XCELERA REPORT ---
[address] [facility] [address] Lower Extremity Venous Evaluation Procedure: Color flow and duplex imaging bilaterally of the veins of the lower extremities as well as the Common Femoral veins. Right Sided Venous Evaluation Normal vessel filling wall to wall, compression and augmentation as well as Colour flow down to the infrageniculate veins. Left Sided Venous Evaluation Normal vessel filling wall to wall, compression and augmentation as well as Colour flow down to the infrageniculate veins. Interpretation Summary No duplex evidence of DVT or obstruction in the bilateral lower extremities. Name: VINICIUS BENITEZ Age: 33 yrs Gender: Male : 1985 Patient Status: Emergency Patient Location: ER Study Date: 05/06/2019 12:25 PM Reason For Study: pain BL calfs Ordering Physician: JOVANNA ALVES Performed By: Clemente Hernandez : JOVANNA ALVES > Jose Tinajero
== END 2019-05-06 13:10 | disposition home or self-care (01) ==
LOC: ER 09:43
DX: M79.662 Pain in left lower leg (principal); M79.661 Pain in right lower leg; Z98.890 Other specified postprocedural states
CPT/HCPCS: 93970; 99283

== ENCOUNTER 2019-05-22 23:37 | Emergency (ER) | payer MEDICARE, MEDICAID ==
--- NOTE | 2019-05-23 01:33 | ER Document Report ---
HPI - HPI Patient complains to provider of: scar itching Time Seen by Provider: 05/23/19 01:28 Pain Level: 5 Context: Patient is otherwise healthy 33-year-old male presents to the emergency department for itching to laceration he sustained on his back. Patient states he sustained a laceration on his back approximately a month ago. States he was seen at [facility] for same. States his sutures were removed. States more so today he has had a generalized itching around the site. Patient states he would like it to be evaluated because he is worried there may be an infection. Patient is denying any fevers. Past Medical History - General Information source: Patient - Social History Smoking Status: Unknown if Ever Smoked Family History: Reviewed & Not Pertinent, DM, Malignancy Renal/ Medical History: Denies: Hx Peritoneal Dialysis Past Surgical History: Reports: Hx Abdominal Surgery - hernia repair as a child - Immunizations Immunizations up to date: Yes Hx Diphtheria, Pertussis, Tetanus Vaccination: Yes Vertical Provider Document - CONSTITUTIONAL Agree With Documented VS: Yes Notes: GENERAL: Alert, interacts well. No acute distress. HEAD: Normocephalic, atraumatic. EYES: Pupils equal, round, and reactive to light. Extraocular movements intact. ENT: Oral mucosa moist, tongue midline. NECK: Full range of motion. Supple. Trachea midline. LUNGS: Clear to auscultation bilaterally, no wheezes, rales, or rhonchi. No respiratory distress. HEART: Regular rate and rhythm. No murmur ABDOMEN: Soft, non-tender. Non-distended. Bowel sounds present in all 4 quadrants. EXTREMITIES: Moves all 4 extremities spontaneously. No edema, normal radial and dorsalis pedis pulses bilaterally. No cyanosis. BACK: no cervical, thoracic, lumbar midline tenderness. No saddle anesthesia, normal distal neurovascular exam. NEUROLOGICAL: Alert and oriented x3. Normal speech. cranial nerves II through XII grossly intact. PSYCH: Normal affect, normal mood. SKIN: Warm, dry, normal turgor. Patient has an extensive keloid noted starting at the top of his right back near his right shoulder going down diagonal all the way down to his left hip. Skin appears well-healed. No erythema, fluctuance, induration noted. - INFECTION CONTROL TRAVEL OUTSIDE OF THE [place] IN LAST 30 DAYS: No Course - Re-evaluation Re-evalutation: 05/23/19 01:36 Patient's laceration does appear to be healing well. Keloid scar noted. No areas of fluctuance or induration, no erythema noted. Discussed with patient sometimes scars will itch when they are healing. Discussed use of [id number] vitamin E oil or lotion. Discussed use of Tylenol or Motrin. Patient wishes to decline any analgesics in the emergency room at this time. Patient stable for discharge. - Vital Signs Vital signs: Temp Pulse Resp BP Pulse Ox 97.9 F 79 16 142/72 H 98 05/22/19 23:56 05/22/19 23:56 05/22/19 23:56 05/22/19 23:56 05/22/19 23:56 Discharge - Discharge Clinical Impression: Visit for wound check Condition: Stable Disposition: HOME, SELF-CARE Instructions: Laceration Care ([facility]) Additional Instructions: As we discussed you have been seen and treated in the emergency department for concerns of the laceration on your back. This laceration does not appear infected at all. Actually appears to be healing very well. Unfortunately takes a full year for her skin to regenerate itself. You may have itching or generalized pain around the site while it fully heals itself. Please take [id number] Tylenol Motrin for generalized pain. You can also apply a vitamin E oil or lotion. That will help with scarring. Please follow-up with your primary care provider in the next 24 to 48 hours, return to the emergency room for any concerns.
[2019-05-23 01:35] VITALS: BP 125/80
== END 2019-05-23 01:35 | disposition home or self-care (01) ==
LOC: ER 23:37
DX: L29.9 Pruritus, unspecified (principal); S21.211D Laceration without foreign body of right back wall of thorax without penetration into thoracic cavity, subsequent encounter
CPT/HCPCS: 99281

== ENCOUNTER 2020-09-28 10:34 | Emergency (ER) | payer MEDICARE, MEDICAID ==
[2020-09-28 10:38] VITALS: BP 134/84
[2020-09-28] MEDS ORDERED: CEPHALEXIN 500 MG CAPSULE PO ONE (10:48)
--- NOTE | 2020-09-28 10:49 | ER Document Report ---
ED General - General Chief Complaint: Jaw Pain Stated Complaint: JAW PAIN/SWELLING ANKLE SWELLING Time Seen by Provider: 09/28/20 10:42 Notes: CHIEF COMPLAINT: Swelling adjacent to left eye today HPI: 35-year-old male presenting for swelling adjacent to the left eye this morning woke up with this this morning. Also states he threw up twice. Reports history of acid reflux. No abdominal pain denies nausea currently has not had recent illness including facial congestion or fever. Has taken no medications for his symptoms. ROS: See HPI - all other systems were reviewed and are otherwise negative Constitutional: no fever Eyes: no drainage, no blurred vision ENT: no runny nose, no sore throat Cardiovascular: no chest pain Resp: no SOB, no cough GI: + vomiting, no diarrhea, no abdominal pain : no dysuria Integumentary: + rash Allergy: no hives Musculoskeletal: no extremity pain or swelling Neurological: no numbness/tingling, no weakness MEDICATIONS: I agree with the patient medications as charted by the RN. ALLERGIES: I agree with the allergies as charted by the RN. PAST MEDICAL HISTORY/PAST SURGICAL HISTORY: Reviewed and agree as charted by RN. SOCIAL HISTORY: Reviewed and agree as charted by RN. FAMILY HISTORY: No significant familial comorbid conditions directly related to patient complaint EXAM: Reviewed vital signs as charted by RN. CONSTITUTIONAL: Alert and oriented and responds appropriately to questions. Well-appearing; well-nourished HEAD: Normocephalic; atraumatic EYES: PERRL; Conjunctivae clear, sclerae non-icteric ENT: normal nose; no rhinorrhea; moist mucous membranes; pharynx without lesions noted, no uvula edema or deviation, no tonsillar hypertrophy, phonation normal. Dentition in the left upper molars does not show significant dental caries or tenderness on tapping. No trismus. NECK: Supple without meningismus; non-tender; no cervical lymphadenopathy, no masses CARD: Capillary refill less than 3 seconds; symmetric distal pulses RESP: Normal chest excursion without splinting or tachypnea ABD/GI: non-distended. BACK: The back appears normal EXT: Normal ROM in all joints; no cyanosis, no effusions, no edema SKIN: Normal color for age and race; warm; dry; good turgor; there is soft tissue swelling adjacent to the left eye over the zygomatic region without induration or fluctuance. There is slight swelling of the lateral upper and lower lids adjacent to the left eye there is no visible foreign body under the upper or lower lids. Very slight tenderness on palpation of these regions as well as slight overlying erythema. NEURO: Moves all extremities equally; Motor and sensory function intact PSYCH: The patient's mood and manner are appropriate. Grooming and personal hygiene are appropriate. MDM: 35-year-old male with slight soft tissue swelling with overlying erythema and tenderness adjacent to the left eye. Does not have ocular pain. This is a mild periorbital cellulitis. Has an old scar in this region but there is no induration or fluctuance suggesting an abscess at this time. Will start patient on Keflex and pain medication refer to primary care recheck TRAVEL OUTSIDE OF THE [place] IN LAST 30 DAYS: No - Related Data Allergies/Adverse Reactions: tramadol Allergy (Verified 05/23/19 01:29) rash Past Medical History - Social History Smoking Status: Unknown if Ever Smoked Family History: Reviewed & Not Pertinent, DM, Malignancy Renal/ Medical History: Denies: Hx Peritoneal Dialysis Past Surgical History: Reports: Hx Abdominal Surgery - hernia repair as a child, Hx Orthopedic Surgery - ankle - Immunizations Immunizations up to date: Yes Hx Diphtheria, Pertussis, Tetanus Vaccination: Yes Physical Exam - Vital signs Vitals: Temp Pulse Resp BP Pulse Ox 98.4 F 81 18 134/84 H 97 09/28/20 10:38 09/28/20 10:38 09/28/20 10:38 09/28/20 10:38 09/28/20 10:38 Course - Vital Signs Vital signs: Temp Pulse Resp BP Pulse Ox 98.4 F 81 18 134/84 H 97 09/28/20 10:38 09/28/20 10:38 09/28/20 10:38 09/28/20 10:38 09/28/20 10:38 Discharge - Discharge Clinical Impression: Periorbital cellulitis of left eye Condition: Stable Disposition: HOME, SELF-CARE Additional Instructions: Take the antibiotics as prescribed. Take the pain medication as prescribed. Follow-up with your primary care provider in 2 days for recheck and reevaluation. Return to the emergency department for fever greater than 101 or worsening condition. Use warm compresses to the left face to help with swelling Prescriptions: Diclofenac Sodium [Voltaren 25 Mg Tablet] 25 mg PO Q6HP PRN #20 tablet. PRN Reason: Cephalexin Monohydrate [Keflex 500 mg Capsule] 500 mg PO Q6H 7 Days #28 capsule Referrals: GER ONEILL MD [[facility]] - Follow up as needed
== END 2020-09-28 11:00 | disposition home or self-care (01) ==
LOC: ER 10:34
DX: L03.213 Periorbital cellulitis (principal); R11.10 Vomiting, unspecified; Z87.19 Personal history of other diseases of the digestive system; Z88.6 Allergy status to analgesic agent
CPT/HCPCS: 99283; A9270

== ENCOUNTER → 2020-11-01 | Outpatient (CLI) | payer MEDICARE, MEDICAID ==
--- NOTE | 2020-11-01 13:46 | ER RDC ASSESSMENT REPORT ---
Intake - In the Last 14 days Have you traveled outside [place]?: No Have you been in close contact with someone CONFIRMED: Yes Worked in Healthcare?: No - Symptoms Subjective Fever([place] feverish): No Chills: No Muscule Aches: No Runny Nose: No Sore Throat: No Cough (New or worsening chronic cough): No Shortness of breath: No Nausea or Vomiting: No Headache: No Abdominal Pain: No Diarrhea(3 or more loose stools in last 24 hours): No - Do you have any of the following Chronic lung disease: Asthma or emphysema or COPD: No Cystic Fibrosis: No Diabetes: No High Blood Pressure: No Cardiovascular Disease: No Chronic Kidney Disease: No Chronic Liver Disease: No Chronic blood disorder like Sickle Cell Disease: No Weak immune system due to disease or medication: No Neurologic condition that limits movement: No Developmental delay - Moderate to Severe: No Morbid Obesity (>100 pounds over ideal weight): No - Objective Temperature: 98.3 F Pulse Rate: 77 Respiratory Rate: 15 Blood Pressure: 125/68 O2 Sat by Pulse Oximetry: 97 Objective: Given above, testing performed: covid Disposition: Home; Selfcare General - General Stated Complaint: Asymptomatic Covid test Mode of Arrival: Ambulatory Information source: Patient - [facility] Notes: Patient presents to clinic for COVID-19 testing after coming in close contact with another COVID 19 positive individual. Patient is asymptomatic. They deny any cough, shortness of breath, fever, chills, muscle aches, rhinorrhea, sore throat, nausea or vomiting, headache, abdominal pain or diarrhea. Patient has no acute medical concerns. - Related Data Allergies/Adverse Reactions: tramadol Allergy (Verified 05/23/19 01:29) rash Past Medical History - General Information source: Patient - Social History Smoking Status: Never Smoker Family History: Reviewed & Not Pertinent, DM, Malignancy - Past Medical History Cardiac Medical History: Reports: None Pulmonary Medical History: Reports: None EENT Medical History: Reports: None Neurological Medical History: Reports: None Endocrine Medical History: Reports: None Renal/ Medical History: Reports: None. Denies: Hx Peritoneal Dialysis Malignancy Medical History: Reports None GI Medical History: Reports: None Musculoskeletal Medical History: Reports None Skin Medical History: Reports None Psychiatric Medical History: Reports: None Traumatic Medical History: Reports: None Infectious Medical History: Reports: None Past Surgical History: Reports: Hx Abdominal Surgery - hernia repair as a child, Hx Orthopedic Surgery - ankle Physical Exam - General General appearance: Appears well, Alert In distress: None Notes: PHYSICAL EXAMINATION: GENERAL: Well-appearing and in no acute distress. HEAD: Atraumatic, normocephalic. EYES: sclera anicteric, conjunctiva are normal. ENT: nares patent. Moist mucous membranes. NECK: Normal range of motion, supple without lymphadenopathy. LUNGS: No increased work of breathing. Lung sounds CTAB and equal. No wheezes rales or rhonchi. HEART: Regular rate and rhythm without murmurs. ABDOMEN: Soft, nontender, normal bowel sounds, no guarding. EXTREMITIES: Normal range of motion, no pitting edema. No cyanosis. NEUROLOGICAL: A&O x 3. Normal speech. PSYCH: Normal mood, normal affect. SKIN: Warm, Dry, normal turgor, no rashes or lesions noted Patient Education/Counseling Counseling/Education: Patient presents for COVID 19 testing after close exposure to another person who has tested positive for COVID 19. Patient is asymptomatic at this time. Patient does not have emergency worrying symptoms such as difficulty breathing, shortness of breath, chest pain, pressure, confusion or cyanosis. Patient appears suitable for discharge as vital signs are stable and patient is nontoxic in appearance. Good return precautions have been discussed with patient, aida sheffield verbalized understanding and is agreeable with discharge plan of care at this time. Guidance for worsening S/SX: As a person under investigation for Covid 19, the [place] department of Health and Human Services, division of public health advises you to adhere to the following guidance until your test results are reported to you. If your test result is positive, you will receive additional information from your provider and your local health department at that time. Remain at home until you are cleared by the health provider or public health authorities. Keep a log of visitors to your home, notify any visitors to your home of your isolation status. If you plan to move to a new address or leave the county, notify the local health department in your County. Call your doctor or seek care if you have an urgent medical need. Before seeking medical care, call ahead to get instructions from the provider before arriving at the medical office clinic or hospital. Notify them that you are being tested for the virus that causes Covid 19 so that arrangements can be made, as necessary, to prevent transmission to others in the healthcare setting. Next, notify the local health department in your county. If a medical emergency arises and you need to call 911, inform the first responders that you are being tested for the virus that causes Covid 19. Next, notify the local health department in your county. RDC Discharge - Discharge Clinical Impression: Encounter for screening laboratory testing for COVID-19 virus in asymptomatic patient Condition: Good Disposition: Home; Selfcare
[2020-11-01 13:47] VITALS: BP 125/68
== END ==
LOC: RDC 10:25
PROVIDERS: ATTEND Registered Nurse
DX: Z20.828 Contact with and (suspected) exposure to other viral communicable diseases (principal); Z88.6 Allergy status to analgesic agent
CPT/HCPCS: 99201; U0003; G0463; C9803; 87635; 99211